=== PATIENT | female | born 1945 | race Caucasian/White ===

== ENCOUNTER 2017-06-28 07:24 | Day surgery (SDC) | payer MEDICARE, BC ==
[2017-06-28] MEDS ORDERED: Lactated Ringers 1,000 ML IV SCH (08:00)
[2017-06-28] MEDS ORDERED: fentaNYL 100 MCG/2 ML SDV ONE (08:02)
[2017-06-28] MEDS ORDERED: Propofol 200 MG/20 ML SDV ONE ×2 (08:02→08:05)
[2017-06-28 10:49] VITALS: BP 113/80
--- NOTE | 2017-06-28 13:13 | OR ---
DATE OF PROCEDURE: 06/28/2017 PREOPERATIVE DIAGNOSIS: History of colon polyps. POSTOPERATIVE DIAGNOSES: Right-sided diverticulosis, small polyp 40 cm from the anal verge, history of colon polyps. PROCEDURE PERFORMED: Colonoscopy to the cecum with biopsy resection of small polyp, 40 cm from the anal verge. SURGEON: Phan De Anda MD. ANESTHESIA: IV anesthesia with monitored anesthesia care. INDICATIONS: This 71-year-old white female is referred for a colonoscopy because of a history of colon polyps. The chart indicates her last colonoscopic exam was done about three years ago. I counseled her for a colonoscopy with possible biopsy and/or polypectomy including risks and alternatives, and she gave her informed consent to proceed. DESCRIPTION OF PROCEDURE: The patient was placed in the left lateral decubitus position. IV anesthesia was administered by the Anesthesia Service. Time-out was held. A rectal exam was performed, which was unremarkable. The flexible video Olympus colonoscope was introduced through her anus, up her rectum, out her colon all the way to the cecum. Once the cecum was reached, the scope was slowly withdrawn, examining the mucosa throughout. In the cecum, the appendiceal orifice was noted to be a little prominent. The scope was then withdrawn. We did see a couple of right-sided diverticula. There was no bleeding or inflammation associated with them. No other lesions were noted until we reached about 40 cm from the anal verge. Here we saw a small polyp, this was removed with a few bites of the biopsy forceps. The scope was withdrawn further with no other lesions noted. The scope was retroflexed in the rectum with the distal rectum appearing unremarkable. There was some minor hemorrhoidal tissue seen. The scope was straightened and removed. She tolerated the procedure well. Phan De Anda MD /[id number] [facility]
== END 2017-06-28 11:00 | disposition home or self-care (01) ==
LOC: JP.SDS 07:24
PROVIDERS: ATTEND Surgery
DX: Z12.11 Encounter for screening for malignant neoplasm of colon (principal); D12.6 Benign neoplasm of colon, unspecified; Z86.010 Personal history of colon polyps; K57.30 Diverticulosis of large intestine without perforation or abscess without bleeding; E03.9 Hypothyroidism, unspecified; K21.9 Gastro-esophageal reflux disease without esophagitis; F41.9 Anxiety disorder, unspecified; Z90.49 Acquired absence of other specified parts of digestive tract; Z88.1 Allergy status to other antibiotic agents; Z88.2 Allergy status to sulfonamides; Z98.890 Other specified postprocedural states
CPT/HCPCS: 45380; 88305; J2704; J3010; J7120

== ENCOUNTER 2021-03-10 07:23 | Day surgery (SDC) | payer MEDICARE ==
[2021-03-10] MEDS ORDERED: fentaNYL 100 MCG/2 ML SDV ONE (07:24)
[2021-03-10] MEDS ORDERED: Propofol 200 MG/20 ML SDV ONE (07:24)
[2021-03-10] MEDS ORDERED: Midazolam 1 MG/ML 2 ML SDV ONE (07:25)
[2021-03-10] MEDS ORDERED: Sodium Chloride 0.9% 1,000 ML IV SCH (08:00)
[2021-03-10 10:35] VITALS: BP 123/64; PULSE 65
--- NOTE | 2021-03-10 12:52 | OR ---
DATE OF PROCEDURE: 03/10/2021 SURGEON: Sam Go MD PROCEDURE: Colonoscopy. FINDINGS: 1. Transverse colon polyp #1, approximately 5 mm, completely removed using hot snare wire device. 2. Transverse colon polyp #2, approximately 8 mm, completely removed using hot snare wire device. COMPLICATIONS: None. SCREEDMAN: None. PREOPERATIVE DIAGNOSIS: Screening colonoscopy. POSTOPERATIVE DIAGNOSIS: Screening colonoscopy. RISKS: Risks, benefits, alternatives, and limitations including but not limited to infection, bleeding, perforation, and false positives and false negatives were explained to the patient, and they wished to proceed. PROCEDURE IN DETAIL: The patient was placed in left lateral decubitus position. Digital rectal exam was performed without abnormality. The scope was introduced and advanced atraumatically to the ileocecal valve. A photo was taken. The scope was brought back to the ascending, transverse, and descending colon and retroflexed. During this process, the aforementioned polyps were identified and completely removed. No abnormal bleeding was noted after removal. No diverticulosis. No colitis. No old or new blood. No abnormalities on retroflexion. Greater than 8 minutes was spent removing the scope. Prep was acceptable, approximately 90% of luminal surface could be seen. The patient tolerated the procedure well. Sam Go MD /[id number]
== END 2021-03-10 10:35 | disposition home or self-care (01) ==
LOC: JP.SDS 07:23
PROVIDERS: ATTEND Surgery
DX: Z12.11 Encounter for screening for malignant neoplasm of colon (principal); D12.3 Benign neoplasm of transverse colon; E03.9 Hypothyroidism, unspecified; Z88.2 Allergy status to sulfonamides; Z88.1 Allergy status to other antibiotic agents
CPT/HCPCS: 45385; J2250; J2704; J3010; J7030; 88305